=== PATIENT | female | born 1940 | race Caucasian/White ===

== ENCOUNTER 2023-11-28 03:50 | Inpatient (IN) | payer MEDICARE ==
[~2023-11-28] VITALS: Ht 162.6 cm; Wt 99.8 kg
[~2023-11-28 03:50] MED LIST: NAPR-688 PO
[2023-11-28 03:52] VITALS: BP_SYST 124; PULSE 100; RESP 19; TEMP 98; O2SAT 98
[2023-11-28] MEDS: MORPHINE 4 MG INJ. 4 MG/ML VIAL IVP ONE (04:25)
[2023-11-28 04:55] LABS: BASOPHILS % (AUTO) 0.3 % (0.0-2.0); EOSINOPHILS # (AUTO) 0.1 K/uL (0.0-0.4); EOSINOPHILS % (AUTO) 0.5 % (0.0-4.0); HEMATOCRIT 38.7 % (36-48); HEMOGLOBIN 12.9 g/dL (12.0-16.0); LYMPHOCYTES # (AUTO) 1.1 K/uL (1.0-5.5); LYMPHOCYTES % (AUTO) 6.9 % (20.5-51.5); MEAN CORPUSCULAR HEMOGLOBIN 30 pg (27-31); MEAN CORPUSCULAR HGB CONC 33 % (32-36); MEAN CORPUSCULAR VOLUME 89 fL (79.0-98.0); MONOCYTES % (AUTO) 6.3 % (1.7-9.3); NEUTROPHILS # (AUTO) 13.9 K/uL (1.8-7.7); PLATELET COUNT (AUTO) 325 K/uL (130-430); RED BLOOD CELL COUNT(AUTO) 4.33 MIL/uL (4.2-6.2); RED CELL DISTRIBUTION WIDTH 15.2 % (9.0-15.0); WHITE BLOOD COUNT (AUTO) 16.2 K/uL (4.8-10.8)
[2023-11-28] MEDS: NITROGLYCERIN 1 INCH (GM) OINT. TP ONE (05:08)
[2023-11-28 05:15] LABS: ANION GAP 14 (5-15); CALCIUM 9.6 mg/dL (8.4-11.0); CARBON DIOXIDE 24 mmol/L (23-29); CHLORIDE 99 mmol/L (98-107); GLUCOSE 154 mg/dL (74-106); POTASSIUM 3.5 mmol/L (3.5-5.1); SODIUM SERUM 137 mmol/L (136-145); UREA NITROGEN, BLOOD 10 mg/dL (8-21)
[2023-11-28 05:19] LABS: PROTHROMBIN TIME 10.6 SECS (9.5-12.5)
[2023-11-28 05:22] LABS: ALANINE AMINOTRANSFERASE 15 U/L (12-78); ALBUMIN 3.4 g/dL (3.4-4.8); ASPARTATE AMINOTRANSFERASE 17 U/L (10-37); BILIRUBIN,DIRECT 0.2 mg/dL (0.0-0.3); TOTAL BILIRUBIN 0.7 mg/dL (0.0-1.0); TOTAL PROTEIN, SERUM 6.9 g/dL (6.4-8.3)
[2023-11-28 05:58] LABS: BILIRUBIN,URINE NEGATIVE (NEGATIVE); BLOOD, URINE NEGATIVE (NEGATIVE); COLOR,URINE YELLOW (YELLOW); GLUCOSE,URINE NEGATIVE (NEGATIVE); KETONES,URINE NEGATIVE (NEGATIVE); LEUKOCYTE ESTERASE ,URINE 1+ (NEGATIVE); NITRITE, URINE NEGATIVE (NEGATIVE); PROTEIN URINE NEGATIVE (NEGATIVE); UROBILINOGEN,URINE 0.2 (0.2-1.0)
[2023-11-28 06:06] LABS: CLARITY/URINE HAZY (CLEAR)
[2023-11-28 06:07] LABS: BACTERIA,URINE FEW /HPF (None Seen); RBC,URINE 0-3 /HPF (0-3)
[2023-11-28] MEDS ORDERED: INSULIN REGULAR, HUMAN 100 UNITS/ML, 3 ML VIAL (humuLIN R) SUBCUT PRN (06:15)
[2023-11-28] MEDS ORDERED: ALEN10TA25 PO (06:38)
[2023-11-28] MEDS ORDERED: AZEL137S7 NS (06:38)
[2023-11-28] MEDS ORDERED: CHOL100062 PO (06:38)
[2023-11-28] MEDS ORDERED: CETI10CA PO (06:38)
[2023-11-28] MEDS ORDERED: FLUT16SP16 NS (06:38)
[2023-11-28] MEDS ORDERED: DOXY25TA61 PO (06:38)
[2023-11-28] MEDS ORDERED: TROS20TA2 PO (06:38)
[2023-11-28] MEDS ORDERED: METF-379 PO (06:38)
[2023-11-28] MEDS ORDERED: LIPA1TAB4 PO (06:38)
[2023-11-28] MEDS ORDERED: LOSA-413 PO (06:38)
[2023-11-28] MEDS ORDERED: LIP20 PO (06:38)
[2023-11-28] MEDS ORDERED: CINN500T PO (06:38)
[2023-11-28] MEDS ORDERED: FURO20TA4 PO (06:38)
[2023-11-28] MEDS ORDERED: OSCD500 PO (06:38)
[2023-11-28] MEDS ORDERED: LEVO100T PO (06:38)
[2023-11-28] MEDS ORDERED: OMEP20CA15 PO (06:38)
[2023-11-28] MEDS ORDERED: LOPE2CAP PO (06:38)
[2023-11-28] MEDS ORDERED: CHOL4PAC20 PO (06:38)
[2023-11-28] MEDS: cefTRIAXone 1 GM IVPB PREMIX 50 ML IV ONE (07:04)
[2023-11-28] MEDS: PANTOPRAZOLE SODIUM 40 MG TAB PO ONE (10:01)
[2023-11-28] MEDS ORDERED: DEXTROSE 50% JECT 50 ML DISP.SYRIN IVP PRN (11:15)
[2023-11-28] MEDS ORDERED: ALENDRONATE SODIUM 10 MG TABLET (FOSAMAX) PO SCH (11:15)
[2023-11-28] MEDS ORDERED: LOPERAMIDE HCL 2 MG CAPSULE PO PRN (11:15)
[2023-11-28] MEDS: LIPASE/PROTEASE/AMYLASE 1 CAP PO SCH (17:39)
[2023-11-28] MEDS ORDERED: AZELASTINE HCL SCH (21:00)
[2023-11-28 21:20] VITALS: BP_SYST 134; PULSE 86; RESP 24; TEMP 98.8; O2SAT 94
[2023-11-28] MEDS: INSULIN REGULAR, HUMAN 100 UNITS/ML, 3 ML VIAL (humuLIN R) SUBCUT PRN (21:23)
[2023-11-28] MEDS: PANTOPRAZOLE SODIUM 40 MG TAB PO SCH (21:23)
[2023-11-28] MEDS: NAPROXEN 250 MG TABLET PO SCH (21:24)
[2023-11-28] MEDS: metFORMIN HCL 500 MG TABLET PO SCH (21:25)
[2023-11-28] MEDS: AZELASTINE HCL SCH (21:25)
[2023-11-29] MEDS ORDERED: LEVOTHYROXINE SODIUM 0.1 MG TABLET PO SCH (07:00)
[2023-11-29] MEDS ORDERED: ATORVASTATIN 20 MG TABLET PO SCH (09:00)
[2023-11-29] MEDS ORDERED: CALCIUM CARBONATE/VITAMIN D3 1 TAB TABLET PO SCH (09:00)
[2023-11-29] MEDS ORDERED: DOXYLAMINE SUCCINATE 25 MG PO SCH ×2 (09:00)
[2023-11-29] MEDS ORDERED: FUROSEMIDE 20 MG TABLET PO SCH (09:00)
[2023-11-29] MEDS ORDERED: LOSARTAN POTASSIUM 50 MG TABLET (COZAAR) PO SCH (09:00)
[2023-11-29] MEDS ORDERED: CHOLESTYRAMINE/SUCROSE 4 GM/PACKET PO SCH (09:00)
[2023-11-29] MEDS ORDERED: LORATADINE 10 MG TABLET PO SCH (09:00)
[2023-11-29] MEDS ORDERED: TROSPIUM CHLORIDE 20 MG PO SCH ×2 (09:00)
[2023-11-29] MEDS ORDERED: OMEPRAZOLE Non-Formulary 20 MG CAPSULE.DR PO SCH (09:00)
== END 2023-11-29 01:53 | disposition left against medical advice (07) | DRG 392 ==
LOC: SED 03:50 → STU 06:09
PROVIDERS: ADMIT Internal Medicine; ATTEND Internal Medicine
DX: K21.00 Gastro-esophageal reflux disease with esophagitis, without bleeding (principal); N39.0 Urinary tract infection, site not specified; K22.2 Esophageal obstruction; Z20.822 Contact with and (suspected) exposure to COVID-19; E78.5 Hyperlipidemia, unspecified; N18.2 Chronic kidney disease, stage 2 (mild); I12.9 Hypertensive chronic kidney disease with stage 1 through stage 4 chronic kidney disease, or unspecified chronic kidney disease; E11.22 Type 2 diabetes mellitus with diabetic chronic kidney disease; Z53.21 Procedure and treatment not carried out due to patient leaving prior to being seen by health care provider; G89.29 Other chronic pain; Z96.641 Presence of right artificial hip joint; E66.01 Morbid (severe) obesity due to excess calories; M54.9 Dorsalgia, unspecified; E89.0 Postprocedural hypothyroidism; M81.0 Age-related osteoporosis without current pathological fracture; Z68.37 Body mass index [BMI] 37.0-37.9, adult; Z90.89 Acquired absence of other organs; Z79.899 Other long term (current) drug therapy; Z80.0 Family history of malignant neoplasm of digestive organs
CPT/HCPCS: 36415; 71045; 80048; 80076; 81000; 81001; 81015; 82948; 83037; 83880; 84484; 85025; 85379; 85610; 85730; 87040; 87086; 93005; 93306; 99291; G0378; J0696; J1956; J2270